=== PATIENT | female | born 2000 | race Caucasian/White ===

== ENCOUNTER 2020-09-06 01:14 | Emergency (ER) | payer OTHER ==
[~2020-09-06] VITALS: Ht 160 cm; Wt 51.5 kg
--- NOTE | 2020-09-06 01:49 | NUR ---
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 I TOOK TWICE WHAT I WAS SUPPOSED TO FOR MY BODY WEIGHT. THAT WAS ON FRIDAY." PT COMPLAINS OF FEELING ANXIOUS, MILD BOATENG, AND TWITCHINESS. BOYFRIEND AT BEDSIDE. PT AMBULATORY TO BATHROOM FOR UA, BOYFRIEND FOLLOWED AND STOOD OUT IN [place].
[2020-09-06] MEDS ORDERED: PROCHLORPERAZINE 5 MG/ML, 2ML ONE (01:59)
[2020-09-06] MEDS ORDERED: DIPHENHYDRAMINE 25 MG CAPSULE PO ONE (02:00)
[2020-09-06] MEDS ORDERED: PROCHLORPERAZINE 5 MG/ML, 2ML IM ONE (02:00)
[2020-09-06] MEDS ORDERED: DIPHENHYDRAMINE 50 MG/ML, 1ML ONE (02:00)
[2020-09-06] MEDS ORDERED: KETOROLAC 30 MG/1 ML ONE (02:00)
[2020-09-06] MEDS ORDERED: KETOROLAC 30 MG/1 ML IM ONE (02:00)
[2020-09-06 02:13] LABS: BASOPHILS % (AUTO) 1 % (0-1); EOSINOPHILS % (AUTO) 3 % (1-7); LYMPHOCYTES % (AUTO) 31 % (22-44); MEAN CORPUSCULAR HEMOGLOBIN 29.7 pg (27.0-34.8); MEAN CORPUSCULAR HGB CONC 34.3 g/dL (32.4-35.8); MEAN PLATELET VOLUME 8.9 fL (7.4-10.4); MONOCYTES % (AUTO) 8 % (2-9); NEUTROPHILS % (AUTO) 57 % (42-75); PLATELET COUNT 237 x10^3/uL (130-400); RED CELL DISTRIBUTION WIDTH 12.5 % (9.6-15.2)
[2020-09-06 02:15] LABS: MD NO
--- NOTE | 2020-09-06 02:15 | NUR ---
REPORT RECEIVED FROM ROBERT HARDWICK. ASSUMED CARE OF PT. PT RESTING ON GURNEY, NO DISTRESS NOTED. FRIEND AT BEDSIDE. ALL VITALS STABLE.
[2020-09-06 02:19] LABS: HCG UR SG 1.008 (1.003-1.030); MICROSCOPIC NOT IND
[2020-09-06 02:28] LABS: ANION GAP 6 mmol/L (5-15); CALCIUM 8.3 mg/dL (8.5-10.1); CHLORIDE 110 mmol/L (98-107); CREATININE 0.52 mg/dL (0.55-1.02)
--- NOTE | 2020-09-06 02:47 | NUR ---
PER ERP, IV OK AND MEDS TO BE GIVEN IV. IV ESTABLISHED AND PT MEDICATED PER EMAR FOR HEADACHE. 5 RIGHTS ADDRESSED. WARM BLANKETS PROVIDED. PT DENIES ANY OTHER NEEDS AT THIS TIME. WILL CONTINUE TO MONITOR.
--- NOTE | 2020-09-06 02:56 | NUR ---
PT ANXIOUS, KEEPS ASKING "AM I GOING TO BE OK". PT REASSURED SHE IS OK. FRIEND AT BEDSIDE FOR SUPPORT. PT REQUESTED WATER. PROVIDED WITH WATER. CALL LIGHT WITHIN REACH.
[2020-09-06 03:51] VITALS: BP 114/85
--- NOTE | 2020-09-06 03:52 | NUR ---
Patient/Caregiver given discharge instructions and they have confirmed that they understand the instructions. Patient ambulatory with steady gait.
== END 2020-09-06 03:53 | disposition home or self-care (01) ==
LOC: ED 01:50
DX: R51.9 Headache, unspecified (principal); F41.1 Generalized anxiety disorder; R94.31 Abnormal electrocardiogram [ECG] [EKG]
CPT/HCPCS: 36415; 80048; 81003; 81025; 85025; 93005; 96372; 99284; J0780; J1885; Q0163

== ENCOUNTER 2021-03-31 14:50 | Emergency (ER) | payer OTHER ==
[~2021-03-31] VITALS: Ht 162.6 cm; Wt 52.6 kg
[2021-03-31] MEDS ORDERED: PROMETHAZINE 25 MG/ML, 1ML ONE (15:40)
[2021-03-31] MEDS ORDERED: KETOROLAC 30 MG/1 ML ONE (15:40)
--- NOTE | 2021-03-31 15:46 | NUR ---
PT HAS CO HEADACHE. NO N/V, SENSITIVE TO LIGHT. REFUSING MEDS AT THIS TIME. STATES TORADOL MAKES IT WORSE
[2021-03-31] MEDS ORDERED: KETOROLAC 30 MG/1 ML IM ONE (16:00)
[2021-03-31] MEDS ORDERED: PROMETHAZINE 25 MG/ML, 1ML IM ONE (16:00)
--- NOTE | 2021-03-31 16:30 | NUR ---
PT RESTING, DENIES MEDICATIONS. SEEN BY
[2021-03-31 16:40] LABS: BASOPHILS % (AUTO) 1 % (0-1); EOSINOPHILS % (AUTO) 1 % (1-7); LYMPHOCYTES % (AUTO) 18 % (22-44); MEAN CORPUSCULAR HEMOGLOBIN 30.6 pg (27.0-34.8); MEAN CORPUSCULAR HGB CONC 34.5 g/dL (32.4-35.8); MEAN PLATELET VOLUME 9.2 fL (7.4-10.4); MONOCYTES % (AUTO) 6 % (2-9); NEUTROPHILS % (AUTO) 74 % (42-75); PLATELET COUNT 238 x10^3/uL (130-400); RED BLOOD COUNT 4.68 x10^6/uL (3.82-5.3); RED CELL DISTRIBUTION WIDTH 12.7 % (9.6-15.2)
[2021-03-31 16:44] LABS: MD NO
[2021-03-31 16:54] LABS: ALANINE AMINOTRANSFERASE 21 U/L (12-78); ALBUMIN 4.2 g/dL (3.4-5.0); ANION GAP 7 mmol/L (5-15); C-REACTIVE PROTEIN, QUANT 0.03 mg/dL (0.02-0.49); CHLORIDE 110 mmol/L (98-107); CREATININE 0.59 mg/dL (0.55-1.02)
[2021-03-31 16:59] LABS: ALKALINE PHOSPHATASE 133 U/L (45-117); BILIRUBIN,TOTAL 0.7 mg/dL (0.2-1.0); TOTAL PROTEIN 7.8 g/dL (6.4-8.2)
[2021-03-31 17:33] LABS: HCT (SEDRATE) 41.5 % (34.6-47.8)
[2021-03-31] MEDS ORDERED: MORPHINE SULFATE 4 MG/ML, 1ML IVPush PRN (18:30)
[2021-03-31] MEDS ORDERED: ONDANSETRON 2MG/ML, 2ML IVPush ONE (18:30)
[2021-03-31 18:31] VITALS: BP 115/81
--- NOTE | 2021-03-31 18:32 | NUR ---
Patient given discharge instructions and they have confirmed that they understand the instructions. Patient ambulatory with steady gait.
== END 2021-03-31 18:33 ==
LOC: ED 16:16
DX: G43.C1 Periodic headache syndromes in child or adult, intractable (principal)
CPT/HCPCS: 36415; 80053; 84703; 85025; 85651; 86038; 86140; 86430; 99283